=== PATIENT | female | born 1990 | race Caucasian/White ===

== ENCOUNTER 2016-09-03 05:43 | Inpatient (IN) ==
[2016-09-03] MEDS ORDERED: Metoclopramide 10 MG/2 ML VIAL IVP ONE (06:30)
[2016-09-03] MEDS ORDERED: Famotidine 20 MG/2 ML VIAL IVP ONE (06:30)
[2016-09-03] MEDS ORDERED: Ringers Solution, Lactated 1,000 ML IVC ONE (06:30)
[2016-09-03] MEDS ORDERED: Ringers Solution, Lactated 1,000 ML IVC SCH (06:30)
[2016-09-03 07:00] LABS: Basophils % 0.3 %; Eosinophils # 0.2 K/mcL (0.0-0.6); Eosinophils % 1.5 %; Hematocrit 35.2 % (35.3-44.9); Hemoglobin 11.7 g/dL (11.5-15.4); Immature Granulocytes % 1.2 % (0-4); Lymphocytes # 2.6 K/mcL (0.6-4.6); Lymphocytes % 22.2 %; Mean Corpuscular HGB Conc 33.2 g/dL (31.6-35.5); Mean Corpuscular Hemoglobin 27.6 pg (28.0-33.3); Mean Platelet Volume 11.3 fL (9.4-12.4); Monocytes # 0.8 K/mcL (0.0-1.3); Monocytes % 7.2 %; Neutrophils # 7.8 K/mcL (1.6-8.9); Platelet Count 218 K/mcL (140-400); Red Blood Count 4.24 M/mcL (3.82-4.97); Red Cell Distribution Width 15.8 % (11.5-14.5); Segmented Neutrophils % 67.6 %
[2016-09-03] MEDS ORDERED: *HR* FentaNYL (PF) 100 MCG/2 ML VIAL ONE (08:02)
[2016-09-03] MEDS ORDERED: *HR* Morphine Sulfate/PF 5 MG/10 ML AMPUL ONE (08:02)
--- NOTE | 2016-09-03 08:04 | Anesthesia Evaluation PreOp ---
Date of Encounter: 09/03/16 Time of Encounter: 08:02 - Past History Planned Operation: Repeat C/S Cardiac History: Denies any Significant Hx Pulmonary History: Smoker (quit 04/2016) Anesthesia History: Past Anesthesia (emergency 2014, Ginny, ACL reconstruction, R-ankle ORIF, skin graft) : Yes ( - 1 child w/ASD, VSC, Transposition) Alcohol Use: none Drug use: none Medications and Allergies Vit/Iron Fumarate/FA [ Tablet] 1 each PO DAILY MDD 1 tablet [History] Allergies No Known Allergies Allergy (Verified 12/12/14 13:56) - Meds/Allergy Pre-op Review Medications Reviewed: Yes Allergies Reviewed: Yes (VICODIN CAUSED ITCHING & THROAT "SWELLING" SENSATION) Beta Blockers on Current Med List: No Anesthesia Results - Labs 09/03/16 06:30 Anesthesia Exam Intake and Output 09/02/16 09/03/16 09/03/16 23:59 07:59 15:59 Other: Weight 114.6 kg Patient Weight 09/03/16 23:59 Weight 114.6 kg Height: 5'6" Weight: 229# BMI = 42 NPO (# of Hours): MNOC - HEENT Pupil (Motor): Pupils equal, EOMI Mallampati: II Teeth: Normal Oral Opening: Greater than 3 - NET DEVELOPMENT MANAGER LOC: Oriented NET DEVELOPMENT MANAGER Motor: Normal RUE, Normal LUE, Normal RLE, Normal LLE, Normal Face NET DEVELOPMENT MANAGER Sensory: Normal: RUE, LUE, RLE, LLE, Face - Cardiac Rhythm: Regular Murmur: None - Pulmonary Breath Sounds: bilateral Clear Respiratory Effort: Symmetrical Anesthesia Assess/Plan ASA Score: 3 (Smoker, MO/BMI = 42, Term IUP) Anes Supervising Prov Stmt: Pt seen/Evaluated, R&B discussed, questions answered and consent obtained. Silver Cesar MD
--- NOTE | 2016-09-03 08:04 | OB/GYN History & Physical ---
Date of Encounter: 09/03/16 Time of Encounter: 07:58 Assessment and Plan (1) Status post delivery Current visit: Yes Status: Acute will proceed to , will initiate Lovenox 40mg for 6 weeks History of Present Illness HPI: Ms. Banegas is a 26 year old female @ 39+ weeks with a history of PC/S for twin gestation with subsequent loss of one twin. She presents today for delivery via RC/S, she does not report LOF, VB, has occasional cramping, course uncomplicated so far. Mom has thrombophilia and per [facility] recs, we will initiate Lovenox PP. Past Med Surg Social Fam HX - Past Medical History Medical history: non-contributory Psychiatric history: depression - Past Surgical History Surgical History: , cholecystectomy - Social History Smoking Status: Former smoker Smokeless Tobacco Status: No Alcohol use: none Drug use: none - Family History Mother Adopted: No Family Member Ethnicity: Non- Living Status: Still Living Hx Family Cardiac Disorders: Yes Hx Family Respiratory Disorders: No Hx Family Cancer: Yes Hx Family GI Disorders: No Hx Family Genitourinary Disorders: No Hx Family Endocrine Disorder: No Hx Family Musculoskeletal Disorders: No Hx Family Neuromuscular Disorders: No Hx Family Neurologic Disorders: No Hx Family HEENT Disorders: No Hx Family Autoimmune Disorders: No Hx Family Reproductive Disorders: No Hx Family Psychosocial Disorders: No Hx Family Medical Disorders: Yes (def. prot. s and c) Obstetrical History - Pregnancies : 3 Para: 1 Term: 0 : 2 Ab's: 0 Livin Medications and Allergies Vit/Iron Fumarate/FA [ Tablet] 1 each PO DAILY MDD 1 tablet [History] Allergies No Known Allergies Allergy (Verified 12/12/14 13:56) Review of System OB All systems PM: reviewed and no additional remarkable complaints except as stated Exam - Constitutional Constitutional: well nourished - HEENT HEENT: Normocephaly - Neck Neck exam: full ROM - Lungs Respiratory exam: CTAB - Cardiovascular Cardiovascular exam: RRR - Breasts Breast: bilateral: normal - Abdomen Abdomen: Present: gravid - Extremities Extremities exam: warm Results Result Diagrams: 09/03/16 06:30 Abnormal lab results WBC 11.6 K/mcL (4.3-11.1) H 09/03/16 06:30 Hct 35.2 % (35.3-44.9) L 09/03/16 06:30 MCH 27.6 pg (28.0-33.3) L 09/03/16 06:30 RDW 15.8 % (11.5-14.5) H 09/03/16 06:30 All other labs normal. - VTE Reasons for not Prescribing Prophylaxis: Treatment not Indicated - Low risk for VTE
[2016-09-03] MEDS ORDERED: ceFAZolin 2,000 MG in D5% in Water 100 ML IVPB ONE (08:08)
[2016-09-03] MEDS ORDERED: *HR* HYDROmorphone (PF) 1 MG/ML SYRINGE IVP PRN (08:26)
[2016-09-03] MEDS ORDERED: *HR* Morphine 2 MG/ML SYRINGE IVP PRN (08:26)
[2016-09-03] MEDS ORDERED: *HR* OxyCODONE/APAP 5/325 TABLET PO PRN (08:26)
[2016-09-03] MEDS ORDERED: Naloxone 0.4 MG/ML INJ IVP PRN (08:26)
[2016-09-03] MEDS ORDERED: Ibuprofen 400 MG TABLET PO PRN (08:26)
[2016-09-03] MEDS ORDERED: Acetaminophen IV 1,000 MG/100 ML INFUS..BTL IVPB ONE (08:34)
[2016-09-03] MEDS ORDERED: Ringers Solution, Lactated 1,000 ML ONE (09:31)
[2016-09-03] MEDS ORDERED: *HR* Oxytocin 10 UNIT/ML VIAL IM ONE (09:33)
[2016-09-03] MEDS ORDERED: *HR* Phenylephrine 10 MG/ML VIAL ONE (09:33)
[2016-09-03] MEDS ORDERED: Water for inj. (sterile) 10 ML IV ONE (09:33)
--- NOTE | 2016-09-03 09:41 | Anesthesia Procedures ---
Date of Encounter: 09/03/16 Time of Encounter: 09:39 Procedures: Anesthesia - Epidural/Spinal Patient examined: Yes OB Eval: Gestational age: 39.1 OB Eval: : 3 OB Eval: Hx Para: 2 OB Eval: Dilated at (cm): 2 OB Eval: Contractions: Non-stressed pattern Consent Obtained: Yes Supplemental Oxygen: Nasal Cannula Supplemental Oxygen Rate (L/min): 3 Site Prep: Aseptic Technique, Sterile prep and drape, 0.5% Chlorhexidine/Alcohol Patient position: upright Local Anesthetic: Lidocaine 1% Amount of Local Anesthetic used: 2 Interspace Used: L2-L3 Loss of Resistance (AMANDA): No Blood: No CSF: Yes Paresthesia: No Spinal Needle Gauge: 25 Spinal Dose: marcaine 12mg, duramorph 0.2mg, fentanyl 7 mcg Vitals + FHT's: see nsg note
[2016-09-03] MEDS ORDERED: Sennosides 8.6 MG TABLET PO PRN (10:38)
[2016-09-03] MEDS ORDERED: Ondansetron 4 MG/2 ML VIAL IVP PRN (10:38)
[2016-09-03] MEDS ORDERED: Metoclopramide 10 MG/2 ML VIAL IVP PRN (10:38)
--- NOTE | 2016-09-03 10:38 | OB/GYN Procedure Note ---
Section - Date of procedure: 09/03/16 Preop diagnosis: desires repeat Post-op diagnosis: same Procedure: repeat low transverse Surgeon: Dariel Chilel Estimated blood loss (cc): 300 Anesthesiologist: Kaylin [employer] Manager: Mustapha Hernandez Anesthesia Type: Spinal section complications: none Disposition: L&D Recovery Room Specimens: Placenta - Infant (s) Infant A Delivery Date: 09/03/16 Delivery Time: 09:37 Presentation: vertex Gender: Female Gram Weight: 3.38 kg at 1 minute: 9 at 5 minutes: 9 Shoulder Dystocia: not encountered Placenta: complete extraction Cord: nuchal cord - Narrative Narrative: Patient was brought to the operating room and was given satisfactory spinal anesthesia. The abdomen was prepped and draped in a sterile fashion. A Pfannenstiel incision was made and carried sharply down to the level of fascia. The fascia was incised transversely. The fascia was dissected away from the underlying rectus muscles. With sharp and blunt dissection, rectus muscles were divided in midline. The perineum was entered bluntly. The incision was carried vertically with scissors. A transverse incision was made across the bladder peritoneum. The bladder was dissected away from the underlying lower uterine segment. A bladder retractor was placed to protect the bladder. The lower uterine segment was entered sharply with a scalpel. Incision was manually extended. Clear amniotic fluid was encountered. The 's head was pulled up and delivered easily as were the shoulders and body. The mouth and oropharynx were suctioned. The cord was clamped and cut. The infant was passed off to the waiting debridging machine operator in satisfactory condition. APGARS 9/9. Placenta was extracted completely and found to be intact. Uterus was explored and found to be empty. Uterus was delivered through the abdominal incision and massaged vigorously. Intravenous Pitocin was administered. Clamps were placed about the margins of the uterine incision, which was closed primarily with a running locking stitch of 0 Vicryl with adequate hemostasis. Secondary running locking stitch was placed for extra strength to the wound. The uterus was returned to its proper anatomic position in the abdomen. The fascia was closed with a simple running stitch of 0 vicryl. The subcutaenous tissue was closed with 3-0 vicryl. The skin was closed with running subcuticular of 4-0 vicryl. Patient was brought to the recovery room in satisfactory condition. There were no complications. There was 300 cc of blood loss. All sponge, needle, and instrument counts were reported to be correct.
[2016-09-03] MEDS: Oxytocin 20 units/ LR 1000 mL 20 UNIT/1,000 ML BAG IVC SCH ×2 (11:33→21:36)
[2016-09-03] MEDS: Ibuprofen 600 MG TABLET PO PRN ×2 (15:50→23:35)
[2016-09-03] MEDS: *HR* OxyCODONE/APAP 5/325 TABLET PO PRN (20:17)
[2016-09-04] MEDS: *HR* OxyCODONE/APAP 5/325 TABLET PO PRN ×4 (01:33→20:51)
[2016-09-04 05:17] LABS: Basophils % 0.3 %; Eosinophils # 0.1 K/mcL (0.0-0.6); Eosinophils % 1.5 %; Hematocrit 31.1 % (35.3-44.9); Hemoglobin 10.2 g/dL (11.5-15.4); Immature Granulocytes % 0.4 % (0-4); Lymphocytes # 1.9 K/mcL (0.6-4.6); Lymphocytes % 19.7 %; Mean Corpuscular HGB Conc 32.8 g/dL (31.6-35.5); Mean Corpuscular Hemoglobin 26.9 pg (28.0-33.3); Mean Corpuscular Volume 82.1 fL (83.0-100.0); Mean Platelet Volume 10.7 fL (9.4-12.4); Monocytes # 0.8 K/mcL (0.0-1.3); Neutrophils # 6.7 K/mcL (1.6-8.9); Platelet Count 155 K/mcL (140-400); Red Blood Count 3.79 M/mcL (3.82-4.97); Red Cell Distribution Width 15.6 % (11.5-14.5); Segmented Neutrophils % 70.1 %
[2016-09-04] MEDS: Oxytocin 20 units/ LR 1000 mL 20 UNIT/1,000 ML BAG IVC SCH (05:54)
[2016-09-04] MEDS: Ibuprofen 600 MG TABLET PO PRN ×3 (05:54→17:46)
[2016-09-04] MEDS: *HR* Enoxaparin 40 MG/0.4 ML SYRINGE SQ SCH (05:56)
--- NOTE | 2016-09-04 08:05 | OB/GYN Progress Note ---
Date of Encounter: 09/04/16 Time of Encounter: 08:00 - Assessment and Plan (1) Status post delivery Current Visit: Yes Status: Acute Advance diet encourage ambulation discharge home in morning if stable and afebrile Subjective - Subjective Interval history: Patient is doing well this morning minimal pain and bleeding. She is tolerating diet IV and Padron is out. Patient has been encouraged to ambulate and use her incentive spirometry possible discharge home tomorrow if stable and afebrile Patient reports: appetite normal, voiding normally, pain well controlled, ambulating normally [place]: doing well Objective - Vital Signs Latest vital signs: Vital Signs Temp Pulse Resp BP Pulse Ox 09/04/16 03:47 98.6 F 86 20 95/62 98 09/03/16 23:45 98.6 F 88 18 94/58 97 09/03/16 20:20 99 F 86 20 99/65 97 09/03/16 15:45 98.4 F 88 16 114/73 96 09/03/16 14:45 98.3 F 90 16 103/66 97 09/03/16 13:45 98.4 F 80 16 106/65 98 09/03/16 13:15 98.4 F 80 16 97/58 97 09/03/16 12:45 98.3 F 82 18 116/79 97 Intake and Output 09/03/16 09/04/16 09/04/16 23:59 07:59 15:59 Intake Total 1800 / 1800 2300 / 2300 Output Total 650 / 650 750 / 750 Balance 1150 / 1150 1550 / 1550 Intake: IV Fluids 1000 / 1000 300 / 300 Pitocin 20 unit In 1,000 1000 / 1000 300 / 300 ml @ 125 mls/hr IVC .Q8H [facility] Rx#:[id number] Oral 800 / 800 1100 / 1100 Other 900 / 900 Output: Urine 200 / 200 Catheter 650 / 650 550 / 550 Other: Weight 110.223 kg Patient Weight 09/04/16 23:59 Weight 110.223 kg - Exam Lungs: bilateral: normal Chest: Normal S1, Normal S2 Extremities: Present: normal Abdomen: Present: normal appearance, soft Incision: Present: dry, dressed Uterus: Present: firm - Labs Labs: Laboratory Results - last 24 hr 09/03/16 09/04/16 06:30 04:57 WBC 9.5 RBC 3.79 L Hgb 10.2 L D Hct 31.1 L MCV 82.1 L MCH 26.9 L MCHC 32.8 RDW 15.6 H Plt Count 155 MPV 10.7 Immature Gran % 0.4 Seg Neutrophils % 70.1 Lymphocytes % 19.7 Monocytes % 8.0 Eosinophils % 1.5 Basophils % 0.3 Neutrophils # 6.7 Lymphocytes # 1.9 Monocytes # 0.8 Eosinophils # 0.1 Basophils # 0.0 Blood Type A POSITIVE Antibody Screen NEGATIVE
[2016-09-04] MEDS: Prenatal Vit/FA 1 EACH TABLET PO SCH (09:15)
[2016-09-04] MEDS: Simethicone 80 MG TAB.CHEW PO PRN (20:57)
[2016-09-05] MEDS: Ibuprofen 600 MG TABLET PO PRN ×3 (00:04→11:58)
[2016-09-05] MEDS: *HR* OxyCODONE/APAP 5/325 TABLET PO PRN ×2 (03:49→10:10)
[2016-09-05] MEDS: *HR* Enoxaparin 40 MG/0.4 ML SYRINGE SQ SCH (06:06)
[2016-09-05 08:22] VITALS: BP 119/75
[2016-09-05] MEDS: Prenatal Vit/FA 1 EACH TABLET PO SCH (08:34)
[2016-09-05] MEDS: Simethicone 80 MG TAB.CHEW PO PRN (08:34)
--- NOTE | 2016-09-05 09:12 | Discharge Summary ---
Date of Encounter: 09/05/16 Time of Encounter: 09:10 - Discharge Diagnosis (1) Status post delivery Priority: Primary Status: Acute Comments: Meeting milestones, good pain control, tolerating regular diet and ambulating. Voiding without difficulty. Request discharge (2) Anemia, Priority: Secondary Status: Acute Comments: Iron supplementation - Discharge Medications Prescriptions: OxyCODONE/APAP 5/325 [Percocet 5/325 MG] 1 each PO Q4HR PRN #60 tablet PRN Reason: Moderate pain 4-6 Ibuprofen [Motrin] 600 mg PO Q6HR PRN #60 tablet PRN Reason: Pain Vit/Iron Fumarate/FA [ Tablet] 1 each PO DAILY #30 tablet MDD 1 tablet Home Medications: Breast Pump [BREAST PUMP] 1 each .ROUTE AD #1 each 09/05/16 [Rx] Ibuprofen [Motrin] 600 mg PO Q6HR PRN #60 tablet 09/05/16 [Rx] OxyCODONE/APAP 5/325 [Percocet 5/325 MG] 1 each PO Q4HR PRN #60 tablet 09/05/16 [Rx] Vit/Iron Fumarate/FA [ Tablet] 1 each PO DAILY #30 tablet MDD 1 tablet 09/05/16 [Rx] Allergies/Adverse Reactions: Allergies acetaminophen [From Vicodin] Allergy (Verified 09/03/16 08:26) Anaphylaxis hydrocodone [From Vicodin] Allergy (Verified 09/03/16 08:26) Anaphylaxis Data Procedures and tests throughout hospitalization: Laboratory Tests 09/03/16 09/03/16 09/04/16 06:30 06:30 04:57 WBC 11.6 H 9.5 RBC 4.24 3.79 L Hgb 11.7 10.2 L D Hct 35.2 L 31.1 L MCV 83.0 82.1 L MCH 27.6 L 26.9 L MCHC 33.2 32.8 RDW 15.8 H 15.6 H Plt Count 218 155 MPV 11.3 10.7 Immature Gran % 1.2 0.4 Seg Neutrophils % 67.6 70.1 Lymphocytes % 22.2 19.7 Monocytes % 7.2 8.0 Eosinophils % 1.5 1.5 Basophils % 0.3 0.3 Neutrophils # 7.8 6.7 Lymphocytes # 2.6 1.9 Monocytes # 0.8 0.8 Eosinophils # 0.2 0.1 Basophils # 0.0 0.0 Blood Type A POSITIVE Antibody Screen NEGATIVE Date of admission: 09/03/16 05:43 Primary care physician: PCP NO Discharging clinician: Janette Johnson Anticipated date of discharge: 09/05/16 - Patient Status Disposition: Home, Self-Care Condition: Good Functional capacity at discharge: independent ambulation Overall status at discharge: patient is progressing back to baseline - Discharge Instructions Follow Up With: NO,PCP [Primary Care Provider] - - Diet and Activity Activity: increase activity as tolerated, resume usual activities as tolerated Diet: regular diet Hospital Course Procedures: Repeat c/s Reason for admission: section Delivery: section complications: none Discharge diagnosis: IUP at term delivered [place] baby: female Hospital course: Patient has done well . She is requesting discharge. She has no issues with her incision. Pain is well-controlled with oral pain medications. She is breast-feeding and requesting a prescription for a breast pump. She is ambulating and tolerating regular diet. Time Attestation: Total time spent providing and/or coordinating discharge services: Time Spent: Less than 30 minutes - VTE Reasons for not Prescribing Prophylaxis: Treatment not Indicated - Low risk for VTE Documentation of Mechanical Device: Intermittent pneumatic compression device Exam - Constitutional Vitals: Temp Pulse Resp BP Pulse Ox 98.5 F 94 16 119/75 97 09/05/16 07:55 09/05/16 07:55 09/05/16 07:55 09/05/16 07:55 09/05/16 07:55 General appearance IM: cooperative, A&O X 3, pleasant, no acute distress, obese - Respiratory Respiratory exam: Present: CTAB. Absent: respiratory distress - Cardiovascular Cardiovascular exam IM: Present: RRR. Absent: irregular rhythm - GI/Abdominal GI/Abdominal exam IM: normal bowel sounds, soft, no peritoneal signs Incision: normal, dry, intact - Rectal Rectal exam: deferred - Uterine Tone: Firm Uterus Position: 1 Finger Below Umbilicus - Extremities Exam Extremities exam IM: Present: normal inspection, pedal edema, warm. Absent: calf tenderness, tenderness - Neurological Exam Neurological exam: no focal deficits
== END 2016-09-05 12:30 | disposition home or self-care (01) | DRG 540 ==
LOC: 1NENULAB 05:43 → 1NENUOBS 13:06
PROVIDERS: ADMIT Student in an Organized Health Care Education/Training Program; ATTEND Student in an Organized Health Care Education/Training Program

== ENCOUNTER 2021-11-25 09:39 | Inpatient (IN) ==
[2021-11-25] MEDS ORDERED: Famotidine 20 MG/2 ML VIAL IVP PRN (10:02)
[2021-11-25] MEDS ORDERED: Metoclopramide 10 MG/2 ML VIAL IVP PRN ×2 (10:02→22:05)
[2021-11-25] MEDS ORDERED: Naloxone 0.4 MG/ML INJ IVP PRN ×2 (10:02→12:13)
[2021-11-25] MEDS ORDERED: CeFAZolin 2,000 MG/120 ML BAG IVPB ONE (11:00)
[2021-11-25 11:09] LABS: Basophils % 0.3 %; Eosinophils # 0.1 K/mcL (0.0-0.6); Eosinophils % 1.1 %; Hemoglobin 12.1 g/dL (11.5-15.4); Immature Granulocytes % 0.5 % (0-4); Lymphocytes # 2.9 K/mcL (0.6-4.6); Lymphocytes % 28.2 %; Mean Corpuscular HGB Conc 31.8 g/dL (31.6-35.5); Mean Corpuscular Hemoglobin 25.6 pg (28.0-33.3); Mean Corpuscular Volume 80.5 fL (83.0-100.0); Mean Platelet Volume 11.3 fL (9.4-12.4); Monocytes # 0.5 K/mcL (0.0-1.3); Monocytes % 4.6 %; Neutrophils # 6.8 K/mcL (1.6-8.9); Platelet Count 230 K/mcL (140-400); Red Blood Count 4.72 M/mcL (3.82-4.97); Red Cell Distribution Width 16.7 % (11.5-14.5); Segmented Neutrophils % 65.3 %; White Blood Count 10.4 K/mcL (4.3-11.1)
[2021-11-25 11:18] LABS: Amphetamine Screen,Urine Negative ng/mL (Cutoff=1000); Barbiturate Screen,Urine Negative ng/mL (Cutoff=200); Benzodiazepines Screen,Urine Negative ng/mL (Cutoff=200); Cannabinoid Screen,Urine Negative ng/mL (Cutoff = 50); Cocaine Screen,Urine Negative ng/mL (Cutoff= 300); Opiate Screen,Urine Negative ng/mL (Cutoff=300); Phencyclidine Screen,Urine Negative ng/mL (Cutoff=25)
[2021-11-25] MEDS ORDERED: *HR* HYDROmorphone PF 0.5 MG/0.5 ML SYRINGE IVP PRN (12:13)
[2021-11-25] MEDS ORDERED: Promethazine 6.25 MG in Water for inj. (sterile) 20 ML IVPB PRN (12:13)
[2021-11-25] MEDS ORDERED: *HR* Nalbuphine 10 MG/ML AMPUL IV PRN (12:15)
[2021-11-25] MEDS ORDERED: *HR* Morphine Sulfate/PF 10 MG/10 ML AMPUL ONE (12:17)
[2021-11-25] MEDS ORDERED: Ketorolac 30 MG/ML VIAL ONE (12:17)
[2021-11-25] MEDS ORDERED: Acetaminophen IV 1,000 MG/100 ML BAG IVPB ONE (12:17)
[2021-11-25] MEDS ORDERED: Ondansetron 4 MG/2 ML VIAL ONE (12:17)
[2021-11-25] MEDS ORDERED: *HR* FentaNYL (PF) 100 MCG/2 ML VIAL ONE (12:17)
[2021-11-25] MEDS: Ringers Solution, Lactated 1,000 ML IVC SCH ×3 (17:59→23:12)
[2021-11-25] MEDS ORDERED: Lidocaine -MPF 2% 2 ML VIAL ONE (18:51)
[2021-11-25] MEDS ORDERED: Ringers Solution, Lactated 1,000 ML ONE ×2 (18:53→19:51)
[2021-11-25] MEDS ORDERED: Ondansetron 4 MG/2 ML VIAL IVP PRN (22:05)
[2021-11-25] MEDS ORDERED: Rho Immune Globulin 1,500 UNIT SYRINGE IM ONE (22:05)
[2021-11-25] MEDS: *HR* OxyCODONE Immed Rel 5 MG TABLET PO PRN (22:56)
[2021-11-25] MEDS: *HR* Enoxaparin 60 MG/0.6 ML SYRINGE SQ SCH (23:11)
[2021-11-25] MEDS: Ibuprofen 600 MG TABLET PO SCH (23:12)
[2021-11-25] MEDS: Acetaminophen 325 MG TABLET PO SCH (23:12)
[2021-11-26] MEDS: Oxytocin 30 UNIT/503 ML BAG IVC SCH ×3 (00:13→01:25)
[2021-11-26] MEDS: Ibuprofen 600 MG TABLET PO SCH ×4 (02:26→21:42)
[2021-11-26] MEDS: Acetaminophen 325 MG TABLET PO SCH ×4 (02:26→21:43)
[2021-11-26] MEDS: Ringers Solution, Lactated 1,000 ML IVC SCH ×3 (03:11→22:55)
[2021-11-26 04:28] LABS: Basophils % 0.3 %; Eosinophils # 0.1 K/mcL (0.0-0.6); Hematocrit 30.7 % (35.3-44.9); Immature Granulocytes % 0.4 % (0-4); Lymphocytes # 2.8 K/mcL (0.6-4.6); Lymphocytes % 27.9 %; Mean Corpuscular HGB Conc 31.3 g/dL (31.6-35.5); Mean Corpuscular Hemoglobin 25.1 pg (28.0-33.3); Mean Corpuscular Volume 80.2 fL (83.0-100.0); Mean Platelet Volume 11.4 fL (9.4-12.4); Monocytes # 0.5 K/mcL (0.0-1.3); Monocytes % 4.5 %; Neutrophils # 6.6 K/mcL (1.6-8.9); Platelet Count 194 K/mcL (140-400); Red Blood Count 3.83 M/mcL (3.82-4.97); Red Cell Distribution Width 16.5 % (11.5-14.5); Segmented Neutrophils % 65.9 %
[2021-11-26 04:30] LABS: Hemoglobin 9.6 g/dL (11.5-15.4)
[2021-11-26] MEDS: *HR* OxyCODONE Immed Rel 5 MG TABLET PO PRN ×4 (05:29→22:53)
[2021-11-26] MEDS: *HR* Enoxaparin 60 MG/0.6 ML SYRINGE SQ SCH ×2 (08:05→20:13)
[2021-11-26] MEDS: *HR* Metformin 500 MG TABLET PO SCH ×2 (08:07→20:14)
[2021-11-26] MEDS: Insulin LISPRO 300 UNITS/3 ML VIAL SUBQ SCH ×3 (08:12→17:10)
[2021-11-26] MEDS: Prenatal Vit/FA 1 EACH TABLET PO SCH (08:47)
[2021-11-26] MEDS: Insulin DETEMIR 100 UNIT/ML X5UNITS SUBQ SCH (08:48)
[2021-11-26] MEDS ORDERED: Insulin DETEMIR 100 UNIT/ML X5UNITS SUBQ SCH ×2 (09:00→21:00)
[2021-11-26] MEDS ORDERED: NON-FORMULARY MEDICATION 1 EACH EACH (Pnv No.95/Ferrous Fum/Folic Ac [Prenatal Caplet] 1 E PO SCH (09:00)
[2021-11-26 13:33] LABS: BUN/Creatinine Ratio 13 (6-26); Blood Urea Nitrogen 8 mg/dL (6-20); Calcium 8.6 mg/dL (8.6-10.3); Carbon Dioxide 21 mEq/L (23-29); Chloride 105 mEq/L (98-107); Glucose 123 mg/dL (70-105); Osmolality,Calculated 278 (280-300); Potassium 3.8 mEq/L (3.5-5.1); Sodium 134 mEq/L (136-145)
[2021-11-26] MEDS: Simethicone 80 MG TAB.CHEW PO PRN ×2 (15:30→22:53)
[2021-11-26 20:20] VITALS: O2SAT 97
[2021-11-27] MEDS: Acetaminophen 325 MG TABLET PO SCH ×2 (04:31→11:45)
[2021-11-27] MEDS: Ibuprofen 600 MG TABLET PO SCH ×2 (04:31→11:45)
[2021-11-27] MEDS: *HR* OxyCODONE Immed Rel 5 MG TABLET PO PRN ×2 (04:32→09:22)
[2021-11-27] MEDS: Ringers Solution, Lactated 1,000 ML IVC SCH (06:31)
[2021-11-27 07:10] VITALS: BP 122/71; PULSE 74; TEMP 97.7
[2021-11-27] MEDS: Insulin LISPRO 300 UNITS/3 ML VIAL SUBQ SCH ×2 (07:52→11:45)
[2021-11-27] MEDS: Prenatal Vit/FA 1 EACH TABLET PO SCH (07:55)
[2021-11-27] MEDS: *HR* Metformin 500 MG TABLET PO SCH (07:56)
[2021-11-27] MEDS: *HR* Enoxaparin 60 MG/0.6 ML SYRINGE SQ SCH (07:56)
[2021-11-27] MEDS: Simethicone 80 MG TAB.CHEW PO PRN (09:22)
[2021-11-27] MEDS: Insulin DETEMIR 100 UNIT/ML X5UNITS SUBQ SCH (09:23)
== END 2021-11-27 14:00 | disposition home or self-care (01) | DRG 539 ==
LOC: SAMDAY 09:39 → 1NENULAB 09:41 → 1NENUOBS 23:11
PROVIDERS: ADMIT Student in an Organized Health Care Education/Training Program; ATTEND Student in an Organized Health Care Education/Training Program